=== PATIENT | female | born 1955 | race Two or more races ===

== ENCOUNTER 2024-10-05 09:51 | Outpatient (RCR) | payer MEDICAID, SELFPAY | END 2024-11-03 23:59 | disposition home or self-care (01) | LOC: SCTC 09:51 | PROVIDERS: PCP Internal Medicine; Referring Provider Nurse Practitioner Family; Visit Provider Nurse Practitioner Family | DX: D75.89 Other specified diseases of blood and blood-forming organs (principal); E66.9 Obesity, unspecified; Z68.42 Body mass index [BMI] 45.0-49.9, adult; M54.9 Dorsalgia, unspecified | CPT/HCPCS: 99212; G0463 ==

== ENCOUNTER 2025-02-11 09:36 | Outpatient (RCR) | payer MEDICAID, SELFPAY | END 2025-03-03 23:59 | disposition home or self-care (01) | LOC: SCTC 09:36 | PROVIDERS: PCP Internal Medicine; Referring Provider Internal Medicine; Visit Provider Nurse Practitioner Family | DX: D72.829 Elevated white blood cell count, unspecified (principal); D72.820 Lymphocytosis (symptomatic); D72.828 Other elevated white blood cell count; E66.9 Obesity, unspecified; Z68.42 Body mass index [BMI] 45.0-49.9, adult | CPT/HCPCS: 99212; G0463 ==

== ENCOUNTER 2025-05-10 09:13 | Outpatient (RCR) | payer MEDICAID, SELFPAY | END 2025-06-03 23:59 | disposition home or self-care (01) | LOC: SCTC 09:13 | PROVIDERS: PCP Internal Medicine; Referring Provider Internal Medicine; Visit Provider Nurse Practitioner Family | DX: D72.829 Elevated white blood cell count, unspecified (principal); D72.820 Lymphocytosis (symptomatic); D72.828 Other elevated white blood cell count; E66.9 Obesity, unspecified; Z68.41 Body mass index [BMI] 40.0-44.9, adult | CPT/HCPCS: 99212; G0463 ==

== ENCOUNTER 2025-08-10 09:01 | Outpatient (RCR) | payer MEDICAID, SELFPAY | END 2025-09-03 23:59 | disposition home or self-care (01) | LOC: SCTC 09:01 | PROVIDERS: PCP Internal Medicine; Referring Provider Internal Medicine; Visit Provider Nurse Practitioner Family | DX: D72.820 Lymphocytosis (symptomatic) (principal); D72.828 Other elevated white blood cell count; I10 Essential (primary) hypertension; E11.9 Type 2 diabetes mellitus without complications; E78.00 Pure hypercholesterolemia, unspecified; E66.9 Obesity, unspecified; Z68.41 Body mass index [BMI] 40.0-44.9, adult | CPT/HCPCS: 99212; G0463 ==